=== PATIENT | male | born 1985 | race Caucasian/White ===

== ENCOUNTER 2019-05-29 15:56 | Emergency (ER) | payer BC ==
[~2019-05-29] VITALS: Ht 182.9 cm; Wt 90.7 kg
--- NOTE | 2019-05-29 16:03 | NUR ---
ED Nurse Note: PT CALLED FROM WAITING ROOM BUT NOT THERE.
[2019-05-29] MEDS ORDERED: CLONIDINE0.1 MG PO (16:08)
[2019-05-29 16:15] VITALS: BP 132/82
--- NOTE | 2019-05-29 16:15 | NUR ---
ED Nurse Note: Patient walked in to ER c/o feeling anxious and has episodes of shakiness and headache. Patient stated that he had history of alcoholism. He mentioned that he started drinking when he was 14 y/o. Last time he drank alcohol was 2 days ago. Patient is alert and oriented and able to make needs known.
[2019-05-29] MEDS ORDERED: LORazepam Inj 2mg/ml 1ml IM ONE (17:00)
--- NOTE | 2019-05-29 17:15 | NUR ---
ED Nurse Note: Patient laying in bed, verbalizing that he is still feeeling anxious. Explained to patient to wait for the medication to work. Instructed to perform deep breathing exercises to relax himself. Patient verablly understood. Provided rest and dim light
[2019-05-29 17:20] VITALS: BP 128/88
[2019-05-29] MEDS ORDERED: ATIVAN1 MG ORAL (17:40)
[2019-05-29 17:47] VITALS: BP 130/86
--- NOTE | 2019-05-29 17:47 | NUR ---
ER DISCHARGE NOTE: Patient is cleared to be discharged per ERMD, pt is aox4, on room air, with stable vital signs. pt was given dc and prescription instructions, pt was able to verbalize understanding, pt id band removed. pt is able to ambulate with steady gait. pt took all belongings.
--- NOTE | 2019-05-29 19:29 | Emergency Room Report ---
History of Present Illness General Chief Complaint: General Complaint Source: Patient Present Illness HPI 34-year-old male presents ED for evaluation. Brought in by complaining of alcohol withdrawal. States that he stopped drinking 2 days ago. Feels tremulous and shaky and anxious. Denies chest pain or shortness of breath. Denies nausea or vomiting. Denies hearing voices or hallucinations. Admits to daily alcohol use. Denies drug use. No other aggravating relieving factors. Denies any other associated symptoms Allergies: Coded Allergies: No Known Allergies (Unverified , 05/29/19) Patient History Past Medical History: none Past Surgical History: none Pertinent Family History: none Social History: Reports: alcohol use; Denies: smoking, drug use Immunizations: UTD Reviewed Nursing Documentation: PMH: Agreed; PSxH: Agreed Nursing Documentation-PMH Hx Hypertension: Yes Review of Systems All Other Systems: negative except mentioned in HPI Physical Exam Vital Signs Date Time Temp Pulse Resp B/P (MAP) Pulse Ox O2 Delivery O2 Flow Rate FiO2 05/29/19 16:05 98.8 81 18 144/89 (107) 100 Room Air Sp02 EP Interpretation: reviewed, normal General Appearance: no apparent distress, alert, GCS 15, non-toxic Head: normocephalic, atraumatic Eyes: bilateral eye normal inspection, bilateral eye PERRL ENT: hearing grossly normal, normal pharynx, no angioedema, normal voice Neck: full range of motion, supple/symm/no masses Respiratory: chest non-tender, lungs clear, normal breath sounds, speaking full sentences Cardiovascular #1: regular rate, rhythm, no edema Cardiovascular #2: 2+ carotid (R), 2+ carotid (L), 2+ radial (R), 2+ radial (L) , 2+ dorsalis pedis (R), 2+ dorsalis pedis (L) Gastrointestinal: normal bowel sounds, non tender, soft, non-distended, no guarding, no rebound Rectal: deferred Genitourinary: normal inspection, no CVA tenderness Musculoskeletal: back normal, gait/station normal, normal range of motion, non- tender Neurologic: alert, oriented x3, responsive, motor strength/tone normal, sensory intact, speech normal Psychiatric: judgement/insight normal, memory normal, no suicidal/homicidal ideation, no delusions, anxious Reflexes: 3+ bicep (R), 3+ bicep (L), 3+ tricep (R), 3+ tricep (L), 3+ knee (R) , 3+ knee (L) Lymphatic: no adenopathy Medical Decision Making Diagnostic Impression: Primary Impression: Alcohol withdrawal Qualified Codes: F10.239 - Alcohol dependence with withdrawal, unspecified ER Course Hospital Course 34-year-old male presents ED complaining of shaking, stating he is in withdrawal. Chronic history of alcohol use Differential diagnoses include: Alcohol intoxication, drug abuse, opioid withdrawal, alcohol withdrawal, dehydration, drug seeking behavior Clinical course Patient placed on stretcher. On cardiac monitor technician. Her initial history physical exam reveals male in no acute distress. Does appear anxious. Alert and oriented x3. Answering questions appropriately. Physical exam unremarkable. vitals stable. BP normal. Not tachycardic. Mentating appropriately. No signs of DTs. Given Ativan in ED. On reassessment patient states he feels better. No longer tremulous. Discussed findings with patient. Will discharge to home with short course of Ativan. safe for discharge with close outpatient follow-up. States he has a PMD. i. I feel this is a highly complex case requiring extensive working including EKG/Rhythm strip, Xray/CT/US, Blood/urine lab work, repeat exams while in ED, and administration of strong opiates/narcotics for pain control, admission to hospital or close patient follow up. Diagnosis - alcohol withdrawal Stable and discharged to home with prescription for ativan. Followup with PMD. Return to ED if symptoms recur or worsen Last Vital Signs Date Time Temp Pulse Resp B/P (MAP) Pulse Ox O2 Delivery O2 Flow Rate FiO2 05/29/19 17:47 98.2 88 19 130/86 99 Room Air Status: improved Disposition: HOME, SELF-CARE Condition: Stable Scripts Lorazepam* (ATIVAN*) 1 Mg Tablet 1 MG ORAL THREE TIMES A DAY, #15 TAB Prov: Agustin Padilla MD 05/29/19 Referrals: NON PHYSICIAN (PCP) Patient Instructions: Alcohol Withdrawal Agustin Padilla MD May 29, 2019 19:29
== END 2019-05-29 17:47 | disposition home or self-care (01) ==
LOC: EMR 16:50
DX: F10.239 Alcohol dependence with withdrawal, unspecified (principal); I10 Essential (primary) hypertension
CPT/HCPCS: 96372; 99283